=== PATIENT | female | born 1995 | race Caucasian/White ===

== ENCOUNTER 2025-02-11 09:10 | Outpatient (RCR) | payer BC, SELFPAY ==
[2025-02-11 09:41] VITALS: BP 121/78; PULSE 97
== END 2025-03-26 13:37 | disposition other institution (70) ==
LOC: ANHOBOP 09:10
PROVIDERS: Visit Provider Obstetrics & Gynecology
DX: O36.8130 Decreased fetal movements, third trimester, not applicable or unspecified (principal); Z3A.33 33 weeks gestation of pregnancy
CPT/HCPCS: 59025

== ENCOUNTER 2025-02-16 21:15 | Observation (INO) | payer BC, SELFPAY ==
--- OUTSIDE RECORDS SUMMARY | 2025-02-16 21:19 | XMS_ITS | Clinical Summary ---
Author Organization [facility] Administrative Offices Address [address] [place] [id number] Care Team Providers Care Checkout Supervisor Name Role Phone Vishal Mata MD Primary Care Provider [phone] Social History Tobacco Use Types Packs/Day Years Used Date Smoking Tobacco: Never Assessed Sex and Gender Information Value Date Recorded Sex Assigned at Not on file Legal Sex Male 12:27 PM CDT Gender Identity Not on file Sexual Orientation Not on file Plan of Treatment Health Maintenance Due Date Last Done Comments INFLUENZA VACCINE (#1) 2025 05/20/2019 DTAP/TDAP/TD VACCINES (8 - T d or Tdap) 05/13/2025 05/13/2015, 06/03/2008, 08/09/1998, Additional history exists HEPATITIS B VACCINES Completed 09/05/1994, 1993, 1993 HPV VACCINES Completed 10/08/2007, 05/30, 04/11/2007 Insurance [facility] OPEN ACCESS HMO Care Teams Checkout Supervisor Relationship Specialty Start Date End Date Vishal Mata MD PCP - General Family Practice 05/24/21
--- OUTSIDE RECORDS SUMMARY | 2025-02-16 21:19 | XMS_ITS | Clinical Summary ---
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 This disclosure is being madepursuant to the Care Everywhere program and may not contain all information available regarding this patient. Last updated 18.Text A Cab Between Allergies No known active allergies Medications * Be aware that medications may not be up to date on this document. Alwaysverify current medications with the patient. 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 CLERK Gender Identity Not on file Sexual Orientation Not on file Last Filed Vital Signs Vital Sign Reading Time Taken Comments Blood Pressure 108/68 08/29/2020 12:05 PM CODING CLERK Pulse 69 08/29/2020 12:05 PM CODING CLERK Temperature 36.9 C (98.5 F) 08/29/2020 12:05 PM CODING CLERK Respiratory Rate 17 08/29/2020 12:05 PM CODING CLERK Oxygen Saturation - - Inhaled Oxygen Concentration - - Weight 79.4 kg (175 lb) 08/29/2020 12:05 PM CODING CLERK Height 162.6 cm (5' 4) 08/29/2020 12:05 PM CODING CLERK Body Mass Index 30.04 08/29/2020 12:05 PM CODING CLERK Plan of Treatment Health Maintenance Due Date Last Done Comments HIV SCREENING 2008 HEPATITIS C SCREENING 06/03/2011 DTAP/TDAP/TD VACCINES (1 - Tdap) 2012 HEPATITIS B VACCINE (1 of 3 - 19+ 3-dose series) 2012 HPV VACCINE (1 - 3-dose SCDM series) 2020 COVID-19 VACCINE (1 - 2023-2 5 season) 2024 DEPRESSION SCREENING 07/30/2024 INFLUENZA VACCINE (#1) 2025 05/20/2019 ZOSTER VACCINE (1 of 2) 2043 HIB VACCINE Aged Out No longer eligi ble based on patient's age to complete this topic MENINGOCOCCAL (Group B) VACC INE SHARED DECISION-MAKING Aged Out No longer eligibl e based on patient's age to complete this topic MENINGOCOCCAL GROUPS A/C/Y/W VACCINE Aged Out No longer eligible b ased on patient's age to complete this topic PNEUMOCOCCAL VACCINE Aged Out No long er eligible based on patient's age to complete this topic
[2025-02-16 21:28] VITALS: BP 139/87; PULSE 103
[2025-02-16 21:30] VITALS: BP 126/96; PULSE 109; BMI 35.6
--- NOTE | 2025-02-16 21:31 | OBADM ---
This patient, Saúl Dallas, admitted to the OB room OB Post 117 for observation. Patient/family oriented to hospital policies and general routines including ID bracelet, bed and alarms, visiting hours, pain management, procedures, bathroom and other care routines, personal items, smoking policy, room service/diet, and visiting hours. Patient/Family are encouraged to report perceived risks to care and to ask questions if they do not understand what they are told or what they should do.
[2025-02-16 21:45] VITALS: BP 121/87; PULSE 104
[2025-02-16 21:46] LABS: Add Urine Microscopic? YES; Appearance Urine Clear (Clear); Glucose Urine UA Negative (Negative); Leukocyte Esterase Ur Trace LEU/UL (Negative); Nitrate Urine Negative (Negative); Non Pathogenic Casts 0-2; Specific Grav Ur 1.011 (1.001-1.035)
[2025-02-16 22:00] VITALS: BP 119/83; PULSE 94
--- NOTE | 2025-02-16 22:01 | PC.NURSE ---
Called Dr. Tadeo, notified of vaginal spooting on toilet paper when she went to bathroom, pt has had no more bleeding, continue to keep pt on monitor for one hour, can D/C with reactive strip.
[2025-02-16 22:15] VITALS: BP 129/84; PULSE 102
[2025-02-16 22:30] VITALS: BP 125/88; PULSE 89
--- NOTE | 2025-02-17 07:40 | PM.OBTRLD ---
OB - Triage/Final Diagnosis Visit Information Date of evaluation: 02/16/25 Reason for evaluation: threatened labor Comments/Additional reasons for admission: I have assessed the risk for this patient, Saúl Dallas, and determined that she would benefit from observation care. Evaluation Laboratory results: Laboratory Tests 02/16/25 21:24 Urine Color Yellow Urine Appearance Clear Urine pH 7.0 Ur Specific [place] 1.011 Urine Protein Negative Urine Glucose (UA) Negative Urine Ketones 1+ H Ur Blood (Man) Negative Urine Nitrate Negative Urine Bilirubin Negative Urine Urobilinogen 0.2 Leukocyte Esterase Rfl Trace H Urine RBC 0-2 Urine WBC 0-5 Ur Squamous Epith Cells None seen Urine Bacteria None seen Urine Casts 0-2 Vital signs: Vital Signs - 24 hr 02/16/25 21:28 02/16/25 21:30 02/16/25 21:45 Pulse Rate 103 H 109 H 104 H Blood Pressure 139/87 126/96 H 121/87 02/16/25 22:00 02/16/25 22:15 02/16/25 22:30 Pulse Rate 94 102 H 89 Blood Pressure 119/83 129/84 125/88
== END 2025-02-16 22:57 | disposition home or self-care (01) ==
PROVIDERS: Admitting Provider Obstetrics & Gynecology; Visit Provider Student in an Organized Health Care Education/Training Program
DX: O47.03 False labor before 37 completed weeks of gestation, third trimester (principal); Z3A.34 34 weeks gestation of pregnancy
CPT/HCPCS: 81001; G0378; G0379

== ENCOUNTER 2025-02-18 14:51 | Outpatient (CLI) | payer BC, SELFPAY ==
--- NOTE | ~2025-02-18 | US_ITS ---
EXAMINATION: US OB follow up DATE: 02/18/2025 15:13 INDICATION: Evaluate growth, presentation and MAIKEL TECHNIQUE: Real-time transabdominal obstetric ultrasound. FINDINGS: No prior studies for comparison. There is a single living fetus in vertex presentation. The placenta is posterior without placenta pr evia. cardiac activity and movement is noted with a heart rate of 167 beats per minute. T he amniotic fluid volume is normal. MAIKEL measures 11.4 cm. The following biometric data were obtained: BPD: 87mm corresponds to gestational age 35 weeks 0 days. Head circumference: 319mm corresponds to gestational age 35 weeks 6 days. Abdominal circumference: 292mm corresponds to gestational age 33 weeks 1 days. Femur length: 68mm corresponds to gestational age 34 weeks 6 days. Estimated weight: 2350grams +/- 352grams 31.6.] IMPRESSION: 1. Single living intrauterine in vertex presentation with an estimated gestational age of 34 weeks 5 days by current ultrasound. 2. Normal MAIKEL measures 11.4 cm. Reviewed, dictated and finalized at location A. IMPRESSION: 1. Single living intrauterine in vertex presentation with an estimat ed gestational age of 34 weeks 5 days by current ultrasound. 2. Normal MAIKEL measures 11.4 cm.
== END 2025-02-18 14:52 | disposition home or self-care (01) ==
LOC: MICIMG 14:52
PROVIDERS: PCP Obstetrics & Gynecology; Visit Provider Obstetrics & Gynecology
DX: Z36.9 Encounter for antenatal screening, unspecified (principal); Z3A.00 Weeks of gestation of pregnancy not specified
CPT/HCPCS: 76816

== ENCOUNTER 2025-03-23 05:05 | Inpatient (IN) | payer BC, SELFPAY ==
[2025-03-23] VITALS (83 sets, daily range): BP systolic 104–158; BP diastolic 65–105; PULSE 75–112; RESP 16–18; TEMP 36.4–36.7; O2SAT 98–100; BMI 35.9
--- NOTE | 2025-03-23 05:38 | LDADM ---
This patient, Saúl Dallas, was admitted to Labor/Delivery/Recovery 106 on 03/23/25 at 05:05. Plans for labor, pain management and were discussed with patient. Patient/family oriented to hospital policies and general routines including ID bracelet, bed and alarms, visiting hours, pain management, procedures, bathroom and other care routines, personal items, smoking policy, room service/diet and guest tray routines, security routines, and visiting hours. Patient/Family are encouraged to report perceived risks to care and to ask questions if they do not understand what they are told or what they should do. See OBIX for further documentation.
[2025-03-23 05:43] LABS: Hematocrit 31.0 % (37.0-47.0); Hemoglobin 10.1 g/dL (12.0-15.0); Immature Granulocyte Percent A 0.4 % (0-0.5); Lymphocytes Absolute Auto 2.11 K/mm3 (0.9-3.2); Mean Corpuscular HGB Conc 32.6 g/dl (32-36); Mean Corpuscular Hemoglobin 27.5 pg (26-34); Mean Corpuscular Volume 84.5 fl (80-100); Nucleated Red Blood Cells Absolute Auto 0.000 K/mm3 (0.0-0.012); Nucleated Red Blood Cells Perc 0.0 % (0.0-0.2); Platelet Count Result 201 k/mm3 (150-375); Red Blood Count 3.67 M/mm3 (4.2-5.4); White Blood Count 10.7 K/mm3 (4.5-10.0)
[2025-03-23] MEDS: OXYTOCIN 30 UNITS/NS 500 ML 30 UNITS/500 ML BAG IV CONT (05:57)
[2025-03-23] MEDS: LACTATED RINGERS 1,000 ML 125 ML IV CONT ×2 (05:57→10:00)
[2025-03-23 06:31] LABS: Syphilis IgG/IgM Antibody Non-Reactive (Nonreactive)
--- NOTE | 2025-03-23 09:22 | PM.IMHP ---
H&P: HPI History of Present Illness Date/Time: 03/23/25 09:22 Chief Complaint: Here for induction of labor. Narrative: 29 y/o at 39 2/7 weeks with well-controlled CHTN, here for induction of labor. GBS neg. Review of Systems Review of Systems: All systems reviewed & are unremarkable except as noted in HPI and below PMFSH Past Medical History Medical History Anxiety Hypertension Family History Family History Other Patient denies significant medical history Social History Social History Smoking status: Former smoker Tobacco type: cigarettes Second hand tobacco smoke exposure: No Alcohol intake: current Substance use: never Do You Feel Safe in your Home?: Yes Lack of Transportation: No Lack of Food: Never True Current Housing: I Have Housing Concerned About Future Housing: No Difficulty Paying Gas/Electric Bills: No Difficulty Paying for Meds: No Currently Unemployed: No Education: Associate Degree Difficulty w/ Childcare or Family Care: No Spiritual care concerns: No Meds Home Medications and Allergies Home Medications ?Medication ?Instructions ?Recorded ?Confirmed ?Type aspirin 81 mg tablet,delayed 81 mg PO DAILY 01/29/25 03/23/25 History release (Adult Aspirin Regimen) docosahexaenoic acid 200 mg mg PO 01/29/25 03/17/25 History capsule ( DHA) labetalol 100 mg tablet 100 mg PO Q12H 01/29/25 03/17/25 History Allergies Allergy/AdvReac Type Severity Reaction Status Date / Time No Known Allergies Allergy Verified 03/23/25 06:29 Vital Signs Vital Signs - 24 hr 03/23/25 05:21 03/23/25 05:30 03/23/25 05:45 Temperature Pulse Rate 111 H 98 107 H Blood Pressure 146/102 H 151/98 H 149/92 H 03/23/25 05:57 03/23/25 06:00 03/23/25 06:30 Temperature 98.1 F Pulse Rate 99 95 Blood Pressure 125/91 H 132/88 03/23/25 07:00 03/23/25 07:30 03/23/25 08:00 Temperature 97.6 F Pulse Rate 85 99 99 Blood Pressure 139/86 138/99 H 139/90 03/23/25 08:30 03/23/25 09:00 Temperature Pulse Rate 85 97 Blood Pressure 122/65 114/71 Exam Const: Other: Well-developed, well-nourished female in no acute distress. Neck: Other: Neck: Trachea midline, no thyromegaly or masses. Resp: Other: Lungs: Normal respiratory effort. Clear to auscultation bilaterally. Cardio: Other: Heart: Regular rate and rhythm with normal S1-S2. GI: Other: ABD: Soft, nontender, nondistended, gravid. No guarding or rebound tenderness. No hepatosplenomegaly. NST reactive. TOCO: irregular contractions. : Other: Cervix: 2-3 / 80 / -2. AROM with clear fluid. Back/Spine/Pelvis: Other: Back: No CVA tenderness. Skin: Other: Skin: No lesions, rashes or ulcers noted. Extrem: Other: Extremities: nontender with no edema Psych: Other: Mental status grossly normal, with normal mood and affect. H&P: Results Labs Labs: Short CBC 03/23/25 Range/Units 05:21 WBC 10.7 H (4.5-10.0) K/mm3 Hgb 10.1 L (12.0-15.0) g/dL Hct 31.0 L (37.0-47.0) % Plt Count 201 (150-375) k/mm3 Assessment and Plan Assessment and plan (1) Term : Code(s): Z34.90 - Encounter for supervision of normal , unspecified, unspecified trimester Status: Acute Assessment and Plan: A: IUP at 39 2/7 weeks. CHTN. P: Induction of labor with oxytocin. Anticipate . (2) Chronic hypertension affecting : Code(s): O10.919 - Unspecified pre-existing hypertension complicating , unspecified trimester Status: Acute
--- NOTE | 2025-03-23 13:08 | P.PNAN_ITS ---
Anes - Initial Pre Proc Eval Date/Time: 03/23/25 13:08 Surgeon: Hamilton Sutherland MD Pre Op Diagnosis: IOL Patient Data Age: 29 Gender: F Height: 1.63 m Weight: 95 kg Last Vital Signs Temp 36.5 C 03/23/25 12:59 Pulse 84 03/23/25 12:30 BP 121/86 03/23/25 12:30 Pulse Ox 98 03/23/25 13:06 Allergies Allergy/AdvReac Type Severity Reaction Status Date / Time No Known Allergies Allergy Verified 03/23/25 06:29 Home Medications ?Medication ?Instructions ?Recorded ?Confirmed ?Type aspirin 81 mg tablet,delayed 81 mg PO DAILY 01/29/25 0 03/23/25 History release (Adult Aspirin Regimen) docosahexaenoic acid 200 mg mg PO 01/29/25 03/17/25 Hi story capsule ( DHA) labetalol 100 mg tablet 100 mg PO Q12H 01/29/2502/27 History Laboratory Tests 03/23/25 05:21 WBC 10.7 H K/mm3 (4.5-10.0) RBC 3.67 L M/mm3 (4.2-5.4) Hgb 10.1 L g/dL (12.0-15.0) Hct 31.0 L % (37.0-47.0) MCV 84.5 fl (80-100) MCH 27.5 pg (26-34) MCHC 32.6 g/dl (32-36) RDW 13.4 % (11.5-14.5) Plt Count 201 k/mm3 (150-375) MPV 10.9 H fl (7.4-10.4) Immature Gran % (Auto) 0.4 % (0-0.5) Neut % (Auto) 75.4 H % (45.5-73.1) Lymph % (Auto) 19.6 % (18.3-44.2) [place] % (Auto) 3.7 % (2.6-8.5) Eos % (Auto) 0.7 % (0-4.4) Baso % (Auto) 0.2 % (0.2-1.2) Lymph # (Auto) 2.11 K/mm3 (0.9-3.2) [place] # (Auto) 0.4 K/mm3 (0.1-0.6) Eos # (Auto) 0.1 K/mm3 (0-0.3) Baso # (Auto) 0.0 K/mm3 (0.0-0.1) Abs Immat Gran (auto) 0.04 H K/mm3 (0.00-0.031) Absolute Neuts (auto) 8.1 H K/mm3 (1.3-6.7) Absolute Nucleated RBC 0.000 K/mm3 (0.0-0.012) Nucleated RBC % 0.0 % (0.0-0.2) Syphilis IgG/IgM Ab Non-reactive (Nonreactive) Blood Type O Positive Antibody Screen Negative Patient hx anesthesia problems: none Family hx anesthesia problems: none Results Review: All pre-operative results and documents have been reviewed as part of the pre- operative evaluation. [facility] Past Medical History Medical History Anxiety Hypertension Family History Family History Other Patient denies significant medical history Social History Social History Smoking status: Former smoker Tobacco type: cigarettes Second hand tobacco smoke exposure: No Alcohol intake: current Substance use: never Do You Feel Safe in your Home?: Yes Lack of Transportation: No Lack of Food: Never True Current Housing: I Have Housing Concerned About Future Housing: No Difficulty Paying Gas/Electric Bills: No Difficulty Paying for Meds: No Currently Unemployed: No Education: Associate Degree Difficulty w/ Childcare or Family Care: No Spiritual care concerns: No Anes - Eval Final PreProcedure Day of Procedure 03/23/25 13:08 Patient weight: obese Heart: regular rate and rhythm Lungs: clear to auscultation Neurological: alert and oriented ASA classification: III Emergent: no Anesthetic plan: proceed Anesthesia type and monitoring: regional epidural and standard monitoring Results Review: All pre-operative results and documents have been reviewed as part of the pre- operative evaluation. Informed Consent: The patient's anesthetic plan and its attendant risks and benefits were discussed with the patient/family/POA. Questions were solicited and answers provided to the satisfaction of the patient/family/POA.
--- NOTE | 2025-03-23 13:25 | PM.OBPRVD ---
OB - Vaginal Delivery Note Procedure Delivery date: 03/23/25 Events: Chronic Hypertension Induction method: Per Pitocin Protocol Delivery augmentation: Rupture of Membranes Delivery monitor: External FHT, External Uterine and Internal Uterine Route of delivery: Episiotomy description: None Laceration Description: Perineal - 2nd Degree Delivery repair: vicryl (3-0) Specimen: Yes (cord blood) Quantitative Blood Loss (ml): 140 Anesthesia type: Epidural Disposition: PACU Complications: None Narrative: 29 y/o at 39 2/7 weeks gestation who presented to the hospital for induction of labor. Oxytocin was administered intravenously. Amniotomy was performed with return of clear fluid. She received an epidural for pain control. Her labor progressed and her cervix dilated completely. She pushed with good effort and delivered the infant's head to the perineum. A loose nuchal cord was reduced and the body delivered. The nose and mouth were bulb suctioned. After a delay, the cord was clamped and cut. The was handed off the field. Cord blood was collected. The placenta delivered spontaneously and was grossly normal in appearance. The usual 3 vessel cord was noted. A second degree midline perineal laceration was sustained. This was reapproximated using 3 0 Vicryl in the usual layered fashion. Excellent hemostasis resulted as did excellent reapproximation of the normal anatomy. Needle and instrument counts were correct. The patient was taken to recovery room in stable condition. The infant went to the nursery in stable condition. I was present and scrubbed for the entire delivery. Baby Date of : 03/23/25 Time of : 12:55 Gestational Age by Date: 39 Infant gender: Male presentation: vertex position: Left Occiput Anterior Placenta delivery description: Spontaneous and Normal Configuration Cord Vessel Description: 3 Vessels, Nuchal Cord and Delayed Cord Clamping
[2025-03-23] MEDS: OXYTOCIN 30 UNITS/NS 500 ML 30 UNITS/500 ML BAG 125 UNITS IV CONT (13:32)
[2025-03-23] MEDS: BENZOCAINE 20% AER SPR (*SP) 56 GM CAN 1 SPRAY TOPICAL (15:59)
[2025-03-23] MEDS: WITCH HAZEL 40 PADS 1 PAD TOPICAL (15:59)
--- NOTE | 2025-03-23 16:07 | PC.NURSE ---
Patient transferred to post room #284 via wheelchair. Support person present. Oriented to unit, room, information board, rooming in, admission packet and security measures. Patient verbalizes understanding.
--- NOTE | 2025-03-23 17:20 | PM.OBDSVD ---
DS: Admitting Diagnosis Discharge Date 03/24/25 Admitting Diagnosis IUP at 39 2/7 weeks Chronic hypertension DS: Discharge Diagnosis Discharge Diagnosis (1) (normal spontaneous vaginal delivery): Code(s): O80 - Encounter for full-term uncomplicated delivery Status: Acute (2) Chronic hypertension affecting : Code(s): O10.919 - Unspecified pre-existing hypertension complicating , unspecified trimester Status: Acute OB - DS: Summary OB Procedures : NST OB Procedures Intrapartum: Spontaneous Vag Delivery OB Procedures: : None Peripartum Data Laceration Description: Perineal - 2nd Degree Episiotomy description: None Time Spent with Patient Time attestation: Total time spent providing and/or coordinating discharge services: DS: Data Data Completed and Pending Labs on day of discharge: Labs from last 24 hours 03/23/25 05:21 WBC 10.7 H RBC 3.67 L Hgb 10.1 L Hct 31.0 L MCV 84.5 MCH 27.5 MCHC 32.6 RDW 13.4 Plt Count 201 MPV 10.9 H Immature Gran % (Auto) 0.4 Neut % (Auto) 75.4 H Lymph % (Auto) 19.6 [place] % (Auto) 3.7 Eos % (Auto) 0.7 Baso % (Auto) 0.2 Lymph # (Auto) 2.11 [place] # (Auto) 0.4 Eos # (Auto) 0.1 Baso # (Auto) 0.0 Abs Immat Gran (auto) 0.04 H Absolute Neuts (auto) 8.1 H Absolute Nucleated RBC 0.000 Nucleated RBC % 0.0 Syphilis IgG/IgM Ab Non-reactive Blood Type O Positive Antibody Screen Negative Discharge Plan Discharge Attending physician on discharge: Hamilton Sutherland Discharging Clinician: Hamilton Sutherland Patient Disposition: Home Activity: pelvic rest Diet: regular Discharge Instructions: Call or return if temperature above 100.4? F, increased abdominal pain, increased vaginal bleeding or any new problems. Patient Language: Greenlandic Stand Alone Forms: General Discharge Information Follow-up/Referrals: Hamilton Sutherland MD [Physician, [facility]] - 6 Weeks Discharge Medications: New ibuprofen 600 mg tablet 600 mg PO Q6H PRN (Reason: cramps) Qty: 30 0RF escitalopram oxalate [Lexapro] 10 mg tablet 10 mg PO DAILY Qty: 30 2RF ferrous sulfate 325 mg (65 mg iron) tablet,delayed release (DR/EC) 325 mg PO DAILY Qty: 30 0RF Continued labetalol 100 mg tablet 100 mg PO Q12H DHA 200 mg capsule PO Discontinued aspirin [Adult Aspirin Regimen] 81 mg tablet,delayed release (DR/EC) 81 mg PO DAILY Date of admission: 03/23/25 05:05 Primary Care Provider: UNKNOWN,DOCTOR Admitting Provider: Hamilton Sutherland Attending physician on admission: Hamilton Sutheralnd Condition: Stable
--- NOTE | 2025-03-23 17:40 | PC.NURSE ---
Assisted patient to latch in football hold on the right breast with the nipple shield. She has inverted nipples bilaterally. She tried her 2 other children but did not end up for very long. Nipple shield handout provided and patient shown how to correctly apply. She says that after the first feeding her nipple was everted for a short time after baby came off the breast. Baby was able to latch to the shield with minimal difficulty, just needing his lower lip flanged. Mom is instructed to keep baby's nose and chin close to the breast throughout the feeding to prevent rubbing and nipple pain. Patient is aware that we recommend pumping if she uses the nipple shield consistently. Start time written on the feeding log. Patient will keep baby awake and feeding for as long as desired, with 15 minutes being a reasonable goal. Primary RN updated.
[2025-03-23] MEDS: DOCUSATE SODIUM 100 MG CAPSULE PO (17:53)
[2025-03-23] MEDS: IBUPROFEN 600 MG TABLET PO (17:53)
[2025-03-23] MEDS: LABETALOL HCL 100 MG TABLET PO (17:53)
[2025-03-24 04:40] VITALS: BP 129/79; PULSE 68; RESP 18; TEMP 36.9; O2SAT 100
[2025-03-24] MEDS: DOCUSATE SODIUM 100 MG CAPSULE PO (04:55)
[2025-03-24 05:07] LABS: Hematocrit 26.5 % (37.0-47.0); Hemoglobin 8.5 g/dL (12.0-15.0)
[2025-03-24 08:15] VITALS: BP 140/92; PULSE 85; RESP 16; TEMP 36.9; O2SAT 98
[2025-03-24] MEDS: LABETALOL HCL 100 MG TABLET PO (09:02)
[2025-03-24] MEDS: MULTIVIT/MIN/PREN/FOL AC/IRON TABLET 1 TAB PO (09:03)
[2025-03-24] MEDS: ESCITALOPRAM OXALATE 10 MG TABLET PO (09:03)
--- NOTE | 2025-03-24 10:15 | PC.NURSE ---
Mother verbalizes she is able to independently latch with appropriate positioning and alignment. She denies any nipple discomfort and is with the nipple shield. Infant is currently meeting outcomes for weight, output, jaundice, blood sugar and feeding frequencies of 8-12 times in 24 hours. Mother was provided with a handout about inverted nipples and a latch assist to help pull her nipples out prior to feeding. She says that she was able to remove the shield and latch baby directly to the breast and one feeding last night. She is advised that she should initiate pumping for stimulation when using the nipple shield consistently. She states that she has a Spectra pump at home and she is also offered a hospital pump to use while here. She states that she will let us know if she wants us to set her up with our pump. Mother is encouraged to call for assistance if her doesn?t latch, pain with latching, questions or concerns. Mother voiced understanding of information shared along with the mom/baby guide for an additional resource. Reported to the Primary RN.
[2025-03-24 12:37] VITALS: BP 140/94; PULSE 76; RESP 16; TEMP 37.1; O2SAT 99
--- NOTE | 2025-03-24 13:04 | WPDANLDPN2 ---
Anes-Prog Note L&D Date/Time: 03/24/25 13:04 Comfortable throughout: labor and delivery Neuraxial method: epidural Epidural/Spinal procedure site: clean & non-tender Neuro status: Neuro function grossly intact. Cardiovascular status: normal Respiratory status: normal Airway patency: baseline Mental status: baseline Post-Op hydration status: normal Vital Signs: Last Vital Signs Temp 37.1 C 03/24/25 12:37 Pulse 76 03/24/25 12:37 Resp 16 03/24/25 12:37 BP 140/94 H 03/24/25 12:37 Pulse Ox 99 03/24/25 12:37 O2 Del Method Room Air 03/24/25 06:45 Pain score (VAS): 1 Post-procedural complaints: none Patient feedback: Patient satisfied with anesthetic care.
--- NOTE | 2025-03-24 15:55 | P.PNOB_ITS ---
OB - PN: Subj Subjective Date/time seen: 03/24/25 1300 Narrative: Pain OK. Would like to go home. OB - PN: Obj Data Labs 03/24/25 04:44 Labs: Laboratory Results - last 24 hr 03/24/25 04:44 Hgb 8.5 L Hct 26.5 L OB - PN A/P Plan day: 1 Comments: A: PPD#1, doing well. Would like circumcision for son. Wants to go home. P: Reviewed circumcision. Home to f/u 6 weeks. Exam 2 Psych: Other: AVSS ABD soft, nontender, fundus firm EXT nontender
[2025-03-26 09:18] VITALS: BP 115/80; PULSE 95; TEMP 36.6
== END 2025-03-24 18:55 | disposition home or self-care (01) | DRG 807 ==
LOC: ANHLDR 05:13 → ANHOB2 16:10
PROVIDERS: Admitting Provider Obstetrics & Gynecology; Visit Provider Obstetrics & Gynecology
DX: O10.92 Unspecified pre-existing hypertension complicating childbirth (principal); Z37.0 Single live birth; Z3A.39 39 weeks gestation of pregnancy; O70.1 Second degree perineal laceration during delivery; O69.81X0 Labor and delivery complicated by cord around neck, without compression, not applicable or unspecified
CPT/HCPCS: 36415; 85014; 85018; 85025; 86593; 86850; 86900; 86901; A9270; J2590; J2795; J7120